=== PATIENT | female | born 1985 | race Caucasian/White ===

== ENCOUNTER → 2025-05-13 | Outpatient (CLI) | payer MEDICAID, SELFPAY ==
--- NOTE | 2025-05-13 16:15 | XR_ITS ---
Examination: Ultrasound soft tissue neck Technique: Grayscale sonographic images soft tissue neck Date and time: May 13, 2025, 1601 hrs. Indications: Right submental nonhealing wound one year Findings: Cystic mass consistent with abscess 2.9 x 0.6 x 2.1 cm at the area concern right submental Adjacent lymph node 9 x 10 mm Impression: Findings suspicious for submental abscess as above, recommend CT soft tissue neck post intravenous contrast follow-up
== END | disposition home or self-care (01) ==
PROVIDERS: PCP Hospitalist; Referring Provider Hospitalist; Visit Provider Hospitalist
DX: L02.11 Cutaneous abscess of neck (principal)
CPT/HCPCS: 76536